=== PATIENT | male | born 1960 | race Caucasian/White ===

== ENCOUNTER 2024-12-29 15:50 | Emergency (ER) | payer MEDICAID ==
[~2024-12-29] VITALS: Ht 180.3 cm; Wt 122.7 kg
[2024-12-29 15:53] VITALS: TEMP 98
--- NOTE | 2024-12-29 16:47 | Physician Documentation ---
History of Present Illness ~ Chief Complaint: Suicidal Ideation Stated Complaint: SI Time Seen by MD: 16:09 [facility] 64-year-old male presents to the ED with a complaint of previous SI attempts of self-harm today. Talked with the patient extensively and he said that he has a history of traumatic brain injury. And he was wanting to use an apex machine at his current facility and the facilitate hers indicated that he was not strong enough to to use the apex machine however that made him angry and he states that he attempted to harm himself via by slapping himself.. He is very tearful during interview and states that he had no intention to hurt himself he does not want to hurt anyone and he feels very badly about what he did today. Says he mostly wants to go home and repeatedly expresses house are he is for what he did today. Day of Onset: December 29, 2024 Medication Reconciliation Allergies: Coded Allergies: No Known Allergies (Unverified , 12/29/24) Review of Systems All Other Systems at this time: Reviewed and Negative ROS As stated above in the HPI, otherwise all systems are reviewed and negative. Physical Exam Vital Signs: Temperature: 98.0, Source: Temporal, Heart Rate: 70, Respiratory Rate: 16, BP: 149/71, Pulse Oximetry: 95, Weight: 122.730 Oxygen Flow Rate: 0 Physical Exam General: Alert, no apparent distress. Respiratory: Lungs clear, no respiratory distress. Cardiovascular: Regular rate and rhythm, no murmurs. Gastrointestinal: Soft, nontender, nondistended. Bowels sounds present. Neurologic: Oriented x4. Psychiatric: Normal mood and affect. Skin: Normal color, warm and dry. No edema, no ecchymosis. Progress Results/Orders Results/Orders Vital Signs 12/29/24 12/29/24 12/29/24 15:53 16:42 18:27 Temp 98.0 Pulse 70 74 Resp 16 16 16 B/P (MAP) 149/71 146/99 Pulse Ox 95 98 O2 Flow Rate 0 Medical Decision Making Findings I do not see any danger of SI with a this patient he was very pleasant throughout my interview and repeatedly expressed his sorry for what occurred today II feel no hesitance and discharging him back to his facility as this is what he requested Differential Dx:Considerations: Include: Alcohol abuse, Anxiety, Bipolar disorder, Conversion disorder, Depression, Encephaloathy, Homicidal, Panic disorder, Personality disorder, Schizophrenia, Substance abuse, Suicidal, Other Departure Disposition: 01 HOME / SELF CARE / HOMELESS Impression: Primary Impression: Traumatic brain injury Condition: Stable Discharge Instructions: Suicidal Feelings: How to Help Yourself Additional Instructions: Is cleared to go back to his facility. This stage I do not see any signs or intentions of self-harm. He is overtly sorrowful for his behavior today. Referrals: NO PRIMARY CARE PROVIDER (PCP) Signature Scribe Signature: f Attestation: The note accurately reflects work and decisions made by me.Jose Lara NP 12/29/24 18:44 JOSE LOPEZ NP December 29, 2024 16:47
[2024-12-29 18:27] VITALS: BP 146/99; PULSE 74; RESP 16; O2SAT 98
== END 2024-12-29 18:29 | disposition home or self-care (01) ==
LOC: ER 15:51
DX: S06.89AA Other specified intracranial injury with loss of consciousness status unknown, initial encounter (principal); X58.XXXA Exposure to other specified factors, initial encounter; Y93.89 Activity, other specified; Y92.89 Other specified places as the place of occurrence of the external cause; Y99.8 Other external cause status
CPT/HCPCS: 99284